=== PATIENT | male | born 1960 | race Caucasian/White ===

== ENCOUNTER 2016-11-27 08:21 | Day surgery (SDC) | payer BC ==
[2016-11-24 12:50] VITALS: BMI 33.0
[~2016-11-27 08:21] MED LIST: LACTATED RINGERS 1,000 ML IV SCH
[2016-11-27 08:33] VITALS: RESP 16; TEMP 97.9
[2016-11-27] MEDS ORDERED: LIDOCAINE 1% 20 ML VIAL (10MG/ML) FOR IV START INTRADERMA ONE (08:41)
[2016-11-27] MEDS ORDERED: PROPOFOL 10 MG/ML 20 ML VIAL IV ONE (09:59)
[2016-11-27] MEDS ORDERED: LIDOCAINE 1% INJ 10MG/ML (20 ML MDV) ONE (09:59)
--- NOTE | 2016-11-27 10:12 | P.GSHP ---
History of Present Illness H&P Date: 11/27/16 Chief Complaint: Colon cancer screening Patient here today for colonoscopy. Patient denies rectal related complaints. No rectal bleeding or melena. No family history of colon cancer. Past Medical History Past Medical History: Musculoskeletal Disorder Additional Past Medical History / Comment(s): chronic back pain History of Any Multi-Drug Resistant Organisms: None Reported Additional Past Surgical History / Comment(s): PAIN CLINIC PROCEDURES Past Anesthesia/Blood Transfusion Reactions: No Reported Reaction Past Psychological History: No Psychological Hx Reported Smoking Status: Current every day smoker Past Alcohol Use History: Occasional Additional Past Alcohol Use History / Comment(s): 1ppd or more since teens Past Drug Use History: None Reported - Past Family History Mother Family Medical History: Cancer Medications and Allergies Home Medications Medication Instructions Recorded Confirmed Type Hydrocodone/Acetaminophen 1 tab PO Q6H PRN 03/06/14 11/27/16 History [Hydrocodone/Acetaminophen 10-325] ALPRAZolam [Alprazolam] 0.5 mg PO BID 08/10/16 11/27/16 History Cyclobenzaprine [Flexeril] 10 mg PO BID PRN 08/10/16 11/27/16 History DULoxetine HCL [Duloxetine HCl] 30 mg PO DAILY 08/10/16 11/27/16 History Allergies Allergy/AdvReac Type Severity Reaction Status Date / Time No Known Allergies Allergy Verified 11/27/16 08:47 Surgical - Exam Vital Signs Temp Pulse Resp BP Pulse Ox 97.9 F 60 16 146/73 98 11/27/16 08:30 11/27/16 08:30 11/27/16 08:30 11/27/16 08:30 11/27/16 08:30 Physical exam: General: Well-developed, well-nourished HEENT: Normocephalic, sclerae nonicteric Abdomen: Nontender, nondistended Extremities: No edema Neuro: Alert and oriented Assessment and Plan (1) Colon cancer screening Narrative/Plan: Will proceed with colonoscopy Status: Acute
[2016-11-27 10:47] VITALS: BP 142/82; PULSE 54
--- NOTE | 2016-11-27 11:15 | P.PCN ---
Date of Procedure: 11/27/16 Procedure(s) Performed: PREOPERATIVE DIAGNOSIS: Colon cancer screening POSTOPERATIVE DIAGNOSIS: Ascending colon polyp, rectal polyp PROCEDURE: Colonoscopy with biopsy ANESTHESIA: MAC SURGEON: Pascual De La Cruz M.D. SPECIMENS: Polyps ENDOSCOPIC PROCEDURE: The patient was placed on the endoscopy table in the left decubitus position. The Olympus colonoscope was inserted into the anus and passed under direct visualization to the base of the cecum. The appendiceal orifice was visualized. From that point the scope was slowly withdrawn inspecting all surfaces carefully. There were no neoplastic inflammatory or polypoid lesions throughout the cecum. In the ascending colon a small polyp was identified and removed using the cold biopsy forceps. The remainder of the ascending transverse descending and sigmoid colon appeared normal. In the rectum additional small polyp was seen and removed using the cold biopsy forceps. The remainder the rectum was normal. No diverticulosis was seen. Digital rectal examination was normal. The patient was taken to the recovery room in stable condition per anesthesia guidelines. RECOMMENDATIONS: Await biopsy results. Anticipate colonoscopy in 5 years.
== END 2016-11-27 11:00 | disposition home or self-care (01) ==
LOC: ORWHC2ENDO 08:21
PROVIDERS: ATTEND Surgery
DX: Z12.11 Encounter for screening for malignant neoplasm of colon (principal); D12.2 Benign neoplasm of ascending colon; K62.1 Rectal polyp; G89.29 Other chronic pain; M54.5 Low back pain; F17.200 Nicotine dependence, unspecified, uncomplicated; Z79.899 Other long term (current) drug therapy
CPT/HCPCS: 88305; 45380; J2001; J2704; 99153

== ENCOUNTER → 2018-07-19 | Outpatient (CLI) | payer BC ==
--- NOTE | 2018-07-19 23:39 | XR ---
EXAMINATION TYPE: XR shoulder complete LT DATE OF EXAM: 07/19/2018 COMPARISON: NONE HISTORY: 57-year-old male left shoulder pain for 2 to 3 months TECHNIQUE: 3 views FINDINGS: Mild degenerative spurring at the AC joint. Smooth delineation to the greater tuberosity. Subacromial space is preserved. No tendinous or bursal calcifications. No acute fracture, subluxation, or disloc ation. IMPRESSION: Mild AC joint OA. No acute osseous abnormality seen.
== END | disposition home or self-care (01) ==
LOC: RADXRMAIN 16:21
PROVIDERS: ATTEND Family Medicine
DX: M19.012 Primary osteoarthritis, left shoulder (principal)

== ENCOUNTER 2021-07-10 13:30 | Emergency (ER) | payer BC, OTHER ==
[2021-07-10 13:39] VITALS: BP 149/62; PULSE 72; RESP 18; TEMP 98.5
--- NOTE | 2021-07-10 13:47 | ED ---
Upper Extremity HPI - General Chief Complaint: Extremity Injury, Upper Stated Complaint: IHS/Rt Finger Swelling Time Seen by Provider: 07/10/21 13:40 Source: patient, RN notes reviewed Mode of arrival: ambulatory Limitations: no limitations - History of Present Illness Initial Comments: This a 60-year-old male presents emergency Department chief complaint right hand second digit possible foreign body. Patient states that he felt a piece of metal in which she states it was brass going to his finger approximately 6 weeks ago was patient states he gets a little piece of metal ago and was hand they usually fester up to the surface, but states states this area is swollen, mild discomfort. He states he still believes that there is a piece of metal in his finger his tetanus is up-to-date. Patient has no decreased range of motion no paresthesias no other complaints. - Related Data Home Medications Medication Instructions Recorded Confirmed Hydrocodone/Acetaminophen 1 tab PO Q6H PRN 03/06/14 11/27/16 [Hydrocodone/Acetaminophen 10-325] ALPRAZolam [Alprazolam] 0.5 mg PO BID 08/10/16 11/27/16 Cyclobenzaprine [Flexeril] 10 mg PO BID PRN 08/10/16 11/27/16 DULoxetine HCL [Duloxetine HCl] 30 mg PO DAILY 08/10/16 11/27/16 Previous Rx's Medication Instructions Recorded Cephalexin [Keflex] 500 mg PO Q8HR #21 cap 07/10/21 Allergies Allergy/AdvReac Type Severity Reaction Status Date / Time No Known Allergies Allergy Verified 07/10/21 13:34 Review of Systems ROS Statement: Those systems with pertinent positive or pertinent negative responses have been documented in the HPI. ROS Other: All systems not noted in ROS Statement are negative. Past Medical History Past Medical History: No Reported History Additional Past Medical History / Comment(s): back pain History of Any Multi-Drug Resistant Organisms: None Reported Additional Past Surgical History / Comment(s): HX PAIN CLINIC INJECTIONS IN THE PAST. CAPS/CROWNS. GLASSES. Past Psychological History: Depression Smoking Status: Current every day smoker Past Alcohol Use History: None Reported Past Drug Use History: Marijuana General Exam Limitations: no limitations General appearance: alert, in no apparent distress Respiratory exam: Present: normal lung sounds bilaterally. Absent: respiratory distress, wheezes, rales, rhonchi, stridor Cardiovascular Exam: Present: regular rate, normal rhythm, normal heart sounds. Absent: systolic murmur, diastolic murmur, rubs, gallop, clicks Extremities exam: Present: other (Right hand second digit between the PIP and DIP there is an area of swelling, no definite foreign body no erythema mild tenderness full range of motion) Course Vital Signs 07/10/21 13:35 Temperature 98.5 F Pulse Rate 72 Respiratory 18 Rate Blood Pressure 149/62 O2 Sat by Pulse 98 Oximetry Procedures - Forgein Body Removal Soft Tissue Consent Obtained: verbal consent Site: hand (Right hand second digit) Anesthetic Used: lidocaine 1% Amount (mLs): 3 Foreign Body Suspected: Metal Foreign Body Removed: yes Foreign Body Removal Technique: Forceps Patient Tolerated Procedure: well, no complications Medical Decision Making - Medical Decision Making X-ray showed evidence of foreign body. Foreign body was removed with instrumentation. Patient tolerated well be discharged on antibiotics. Disposition Clinical Impression: Foreign body finger Disposition: HOME SELF-CARE Condition: Stable Instructions (If sedation given, give patient instructions): Soft Tissue Foreign Body (ED) Additional Instructions: Please return to the Emergency Department if symptoms worsen or any other concerns. Prescriptions: Cephalexin [Keflex] 500 mg PO Q8HR #21 cap Is patient prescribed a controlled substance at d/c from ED?: No Referrals: Moises Stephens MD [Primary Care Provider] - 1-2 days Time of Disposition: 14:45
[2021-07-10] MEDS ORDERED: LIDOCAINE 1% INJ 10MG/ML (20 ML MDV) SQ ONE (14:19)
--- NOTE | 2021-07-10 14:34 | XR ---
EXAMINATION TYPE: XR finger RT DATE OF EXAM: 07/10/2021 COMPARISON: NONE HISTORY: Injury 6 weeks ago with persistent pain and swelling TECHNIQUE: 3 views right second finger. FINDINGS: In the palmar soft tissue there is 13 x 1.5 mm radiodense soft tissue foreign body centered midshaft level of the middle phalanx. Additional punctate under 1 mm soft tissue foreign body in the soft tissue proximal diaphysis second distal phalanx noted. No acute displaced fracture. Joint spaces are maintained. IMPRESSION: As above.
[2021-07-10] MEDS ORDERED: BACITRACIN OINT 1 EACH PACKET TOPICAL ONE (14:43)
== END 2021-07-10 15:03 | disposition home or self-care (01) ==
LOC: EC 13:30
DX: S60.450A Superficial foreign body of right index finger, initial encounter (principal); F32.9 Major depressive disorder, single episode, unspecified; F17.200 Nicotine dependence, unspecified, uncomplicated; F12.90 Cannabis use, unspecified, uncomplicated; Z79.899 Other long term (current) drug therapy; W22.8XXA Striking against or struck by other objects, initial encounter
CPT/HCPCS: 73140; 99283; J2001

== ENCOUNTER → 2022-10-01 | Outpatient (CLI) | payer BC ==
--- NOTE | 2022-10-01 15:08 | CT ---
EXAMINATION TYPE: CT brain wo con DATE OF EXAM: 10/01/2022 COMPARISON: None HISTORY: double vision, dizziness and change in memory x 2-[address] DLP: [address] of the brain was performed. The ventricles, basal cisterns and sulci overlying the cerebral convexities demonstrate mild enlargem ent. There is no evidence for intracranial hemorrhage or sulcal effacement. There is decreased attenuation about the periventricular white matter and deep white matter of both c erebral hemispheres, compatible with chronic small vessel ischemia. Differential diagnosis does inclu de demyelination. No mass effects are seen.No midline shift. Osseous calvarium is intact. If symptoms persist consider MRI. IMPRESSION: 1. Age related atrophic and chronic small vessel ischemic change without acute intracranial process s een at this time.
--- NOTE | 2022-10-01 17:40 | US ---
EXAMINATION TYPE: US carotid duplex BILAT DATE OF EXAM: 10/01/2022 COMPARISON: NONE CLINICAL HISTORY: 61-year-old male G45.9 TRANSIENT CEREBRAL ISCHEMIC ATTACK, UNSPECIFIED. Dizziness a nd memory loss TECHNIQUE: Carotid duplex ultrasound examination. Indirect Doppler criteria was utilized. FINDINGS: EXAM MEASUREMENTS: RIGHT: Peak Systolic Velocity (PSV) cm/sec ----- Right CCA: 72.9 ----- Right ICA: 129.8 ----- Right ECA: 282.4 ICA/CCA ratio: 1.8 RIGHT: End Diastole cm/sec ----- Right CCA: 25.0 ----- Right ICA: 48.3 ----- Right ECA: 37.1 LEFT: Peak Systolic Velocity (PSV) cm/sec ----- Left CCA: 93.0 ----- Left ICA: 104.3 ----- Left ECA: 106.9 ICA/CCA ratio: 1.1 LEFT: End Diastole cm/sec ----- Left CCA: 30.3 ----- Left ICA: 40.9 ----- Left ECA: 17.6 VERTEBRALS (direction of flow): Right Vertebral: Antegrade Left Vertebral: Antegrade Rhythm: Normal CLINICAL PHARMACY SPECIALIST NOTES: Mild heterogeneous plaque on the left bulb, otherwise homogeneous plaque throughou t. IMPRESSION: Mildly elevated velocities at the proximal right ICA could be due to turbulent flow. A moderate (50-6 9%) stenosis is not excluded. Further evaluation if clinically indicated. Criteria for Assigning % of Stenosis / Diameter reduction (Estimation based on the indirect measurements of the internal carotid artery velocities (ICA PSV). 1. Normal (no stenosis)=ICA PSV < 125 cm/s: ratio < 2.0: ICA EDV<40 cm/s. 2. Less than 50% stenosis=ICA PSV < 125 cm/s: ratio < 2.0: ICA EDV<40 cm/s. 3. 50 to 69% stenosis=ICA PSV of 125 to 230 cm/s: ration 2.0 ? 4.0: ICA EDV 40-100 cm/s. 4. Greater than 70% stenosis to near occlusion= ICA PSV > 230 cm/s: ratio > 4.0: ICA EDV > 100 cm/s. 5. Near occlusion= ICA PSV velocities may be low or undetectable: variable ratio and ICA EDV. 6. Total occlusion=unable to detect flow.
== END | disposition home or self-care (01) ==
LOC: RADUSWWP 14:14
PROVIDERS: ATTEND Family Medicine
DX: G31.1 Senile degeneration of brain, not elsewhere classified (principal); I65.23 Occlusion and stenosis of bilateral carotid arteries; I67.82 Cerebral ischemia
CPT/HCPCS: 70450; 93880

== ENCOUNTER 2024-02-15 10:18 | Day surgery (SDC) | payer BC ==
[2023-12-16 12:44] VITALS: BMI 31.4
[~2024-02-15 10:18] MED LIST changes: +LIDOCAINE 1% (10MG/ML) FOR IV START INTRADERMA PRN
[2024-02-15] MEDS: LACTATED RINGERS 1,000 ML IV SCH (10:31)
[2024-02-15] MEDS ORDERED: PROPOFOL 10 MG/ML 20 ML VIAL IV ONE (10:52)
--- NOTE | 2024-02-15 10:52 | P.GSHP ---
History of Present Illness H&P Date: 02/15/24 Chief Complaint: Colon cancer screening, history of polyps 63-year-old male here for colonoscopy. Last colonoscopy 7 or 8 years ago. Patient had colon polyps at the time. No bowel complaints. No family history of colon cancer. Past Medical History Past Medical History: Musculoskeletal Disorder Additional Past Medical History / Comment(s): back pain History of Any Multi-Drug Resistant Organisms: None Reported Additional Past Surgical History / Comment(s): HX PAIN CLINIC INJECTIONS IN THE PAST. COLONOSCOPY, Past Anesthesia/Blood Transfusion Reactions: No Reported Reaction Smoking Status: Current every day smoker - Past Family History Mother Family Medical History: No Reported History Medications and Allergies Home Medications Medication Instructions Recorded Confirmed Type Cyclobenzaprine [Flexeril] 10 mg PO BID PRN 08/10/16 02/15/24 History DULoxetine HCL [Duloxetine HCl] 30 mg PO DAILY 08/10/16 02/15/24 History Buprenorphine HCl/Naloxone HCl 1 each SL DAILY 12/16/23 02/15/24 History [Suboxone 2 mg-0.5 mg Sl Film] Allergies Allergy/AdvReac Type Severity Reaction Status Date / Time No Known Allergies Allergy Verified 02/15/24 10:30 Surgical - Exam Vital Signs Temp Pulse Resp BP Pulse Ox 96.9 F L 59 L 18 147/70 98 02/15/24 10:28 02/15/24 10:28 02/15/24 10:28 02/15/24 10:28 02/15/24 10:28 Physical exam: General: Well-developed, well-nourished HEENT: Normocephalic, sclerae nonicteric Abdomen: Nontender, nondistended Extremities: No edema Neuro: Alert and oriented Assessment and Plan (1) Colon cancer screening Narrative/Plan: Will proceed with colonoscopy at this time. Current Visit: No Status: Acute Code(s): Z12.11 - ENCOUNTER FOR SCREENING FOR MALIGNANT NEOPLASM OF COLON SNOMED Code(s): 367886879
--- NOTE | 2024-02-15 11:02 | P.PCN ---
Date of Procedure: 02/15/24 Procedure(s) Performed: PREOPERATIVE DIAGNOSIS: Colon cancer screening with history of polyps POSTOPERATIVE DIAGNOSIS: Normal exam PROCEDURE: Colonoscopy ANESTHESIA: MAC SURGEON: Pascual De La Cruz M.D. SPECIMENS: None ENDOSCOPIC PROCEDURE: The patient was placed on the endoscopy table in the left decubitus position. The Olympus colonoscope was inserted into the anus and passed under direct visualization to the base of the cecum. The appendiceal orifice was visualized. From that point the scope was slowly withdrawn inspecting all surfaces carefully. There were no neoplastic inflammatory or polypoid lesions throughout the cecum, ascending, transverse, descending, sigmoid and rectum. There was no visible diverticulosis noted. Digital rectal examination was normal. The patient was taken to the recovery room in stable condition per anesthesia guidelines. RECOMMENDATIONS: Resume diet. Repeat colonoscopy 7 years.
[2024-02-15 11:13] VITALS: RESP 16; TEMP 96.9
[2024-02-15 11:59] VITALS: BP 132/78; PULSE 78
== END 2024-02-15 12:06 | disposition home or self-care (01) ==
LOC: ORWHC2ENDO 10:18
PROVIDERS: ATTEND Surgery
DX: Z12.11 Encounter for screening for malignant neoplasm of colon (principal); F17.200 Nicotine dependence, unspecified, uncomplicated; Z79.899 Other long term (current) drug therapy
CPT/HCPCS: 45378; J2704